=== PATIENT | male | born 1960 | race Caucasian/White ===

== ENCOUNTER → 2017-02-16 | Outpatient (CLI) | payer BC ==
[~2017-02-16] VITALS: Ht 186.7 cm; Wt 90.1 kg
[~2017-02-16] MED LIST: ATOR10TA82 PO; COEN100C15 PO; COEN200C4 PO; LEVO150T9 PO; LEVO175T3 PO; LPT10 PO; NSNN50; OMEG100046 PO; OMEG10007 PO; TRAZ50TA35 PO
[2017-02-16 15:14] VITALS: BP 144/87; PULSE 63; Ht 186.7 cm; Wt 90.1 kg
== END | disposition home or self-care (01) ==
LOC: C.NEUR 14:10
PROVIDERS: ATTEND Physician Assistant
DX: G47.33 Obstructive sleep apnea (adult) (pediatric) (principal)